=== PATIENT | female | born 1955 ===

== ENCOUNTER 2020-09-16 06:20 | Day surgery (SDC) | payer OTHER ==
[~2020-09-16 06:20] MED LIST: ACID REDUCER20 M1 PO; CALTRATE 600 +1 EACH PO; DEXILANT30 MG PO
[2020-09-16] MEDS ORDERED: RECTICARE30 GM TOP (08:24)
[2020-09-16] MEDS ORDERED: PERCOCET 5-3251 EACH PO (08:24)
== END 2020-09-16 13:20 | disposition home or self-care (01) ==
LOC: CIR.AMB 06:20
PROVIDERS: ATTEND Surgery
DX: K60.1 Chronic anal fissure (principal); Z20.822 Contact with and (suspected) exposure to COVID-19